=== PATIENT | male | born 1970 | race Caucasian/White ===

== ENCOUNTER 2023-10-22 05:37 | Emergency (ER) | payer OTHER, SELFPAY ==
[2023-10-22] VITALS (21 sets, daily range): BP systolic 155–182; BP diastolic 102–133; PULSE 57–84; RESP 16–20; TEMP 36.8; O2SAT 92–100; BMI 29.3
--- NOTE | 2023-10-22 05:49 | CRLHL7_ITS ---
For Patients: As a result of the Century Cures Act, medical imaging exams and procedure reports are released immediately into your electronic medical record. You may view this report before your referring provider. If you have questions, please contact your health care provider. INDICATION: Left-sided weakness. COMPARISON: None available. TECHNIQUE: CT of the head without intravenous contrast. Please note that all CT scans at this facility use dose modulation, iterative reconstruction, and/or weight-based dosing when appropriate to reduce radiation dose to as low as reasonably achievable. FINDINGS: The brain is normal in attenuation with preserved cortes-white matter differentiation. No hydrocephalus. No mass or mass effect. No intracranial hemorrhage. Intact skull base and cranial vault. Visualized orbits are without significant incidental findings. The left maxillary sinus is almost completely opacified. The visualized paranasal sinuses and mastoid air cells are otherwise clear. Incidental small (2 mm on series 7; image 16) dense foreign body within the right orbital medial canthal region. IMPRESSION: No acute infarct, intracranial mass, mass effect, hemorrhage or hydrocephalus. Left maxillary opacification. Incidental small (2 mm on series 7; image 16) dense foreign body within the right orbital medial canthal region. This finding may represent a contraindication to future MRI. Please note that all CT scans at this facility use dose modulation, iterative reconstruction, and/or weight-based dosing when appropriate to reduce radiation dose to as low as reasonably achievable. Dictated by Louie Ojeda MD @ 10/22/2023 6:13:10 AM (Electronically Signed)
[2023-10-22 05:57] LABS: Basophils Absolute Auto 0.04 K/uL (0.00-0.30); Basophils Percent Auto 0.6 % (0.0-3.0); Eosinophils Absolute Auto 0.28 K/uL (0.00-0.50); Eosinophils Percent Auto 4.4 % (0.0-7.0); Hematocrit 46.2 % (37.0-53.0); Hemoglobin* 15.5 gm/dL (13.5-17.5); Immature Granulocytes Abs Auto 0.02 K/uL (0.00-0.30); Immature Granulocytes Pct Auto 0.3 %; Lymphocytes Percent Auto 16.1 % (20-44); Mean Corpuscular HGB Conc 34 gm/dL (32-36); Mean Corpuscular Hemoglobin 30 pg (26-34); Mean Corpuscular Volume 90 fL (80-100); Monocytes Percent Auto 12.3 % (0.0-11.0); Neutrophils Absolute Auto 4.25 K/uL (1.7-7.0); Neutrophils Percent Auto 66.3 % (42.0-72.0); Platelet Count* 278 K/uL (140-440); RDW Coefficient of Variation % 12.4 % (11.5-15.5); Red Blood Count 5.14 m/uL (4.30-5.90); White Blood Count* 6.41 K/uL (4.50-11.00)
[2023-10-22 05:59] LABS: Slide Review Reflex No
[2023-10-22 06:09] LABS: Chloride* 107 mmol/L (96-114)
[2023-10-22 06:10] LABS: Potassium* 3.7 mmol/L (3.6-5.1); Sodium* 136 mmol/L (135-149)
[2023-10-22 06:11] LABS: INR 0.89 (0.91-1.10); Prothrombin Time 12.6 Seconds
[2023-10-22 06:12] LABS: Anion Gap 7 mEq/L (7-15); Carbon Dioxide* 22 mmol/L (20-32); Creatinine* 0.9 mg/dL (0.5-1.5); Est. Creatinine Clearance* 90.78; Estimated Glomerular Filt Rate 101 ml/min; Partial Thromboplastin Time* 33 Seconds (23-33)
--- NOTE | 2023-10-22 06:12 | ED_ITS ---
HPI - Neuro Symptoms/Deficit General Date Seen: 10/22/23 <Alfonso Carreon MD - Last Filed: 10/23/23 20:19> Chief Complaint: Neuro Symptoms/Altered Deficit <Alfonso Carreon MD - Last Filed: 10/23/23 20:19> Stated Complaint: LT sided facial arm numbness <Alfonso Carreon MD - Last Filed: 10/23/23 20:19> Time Seen by Provider: 10/22/23 05:54 <Alfonso Carreon MD - Last Filed: 10/23/23 20:19> Source: patient and family <Alfonso Carreon MD - Last Filed: 10/23/23 20:19> Mode of arrival: ambulatory <Alfonso Carreon MD - Last Filed: 10/23/23 20:19> Limitations: no limitations <Alfonso Carreon MD - Last Filed: 10/23/23 20:19> History of Present Illness HPI Narrative: Patient is a 53-year-old male who comes in with some numbness and tingling of the left side of his face as well as his left hand and foot that began yesterday at 4:00 p.m.. He continued to work and he thought his symptoms had improved somewhat by the time he went to bed. When he woke this morning he felt the numbness was worse, especially in his foot sway decided to come to the emergency department. He is on Praluent 150 mg every two weeks because he does not tolerate statins. He tells me that his blood pressure has always been normal although does quite high on admission. He takes a baby aspirin but admits that he misses days frequently. His maternal grandmother had a stroke. No other vascular disease in the family. He is not a smoker. His PCP is Dr. Carrasco. 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 No history of atrial fibrillation. He has never had an echo. <Alfonso Carreon MD - Last Filed: 10/23/23 20:19> Related Data Home Medications: Home Medications ?Medication ?Instructions ?Recorded ?Confirmed alirocumab 150 mg/mL subcutaneous 150 mg subcut Q14D 10/22/23 10/22/23 pen injector (Praluent Pen) Previous Rx's ?Medication ?Instructions ?Recorded aspirin 81 mg capsule 81 mg PO DAILY #21 caps 10/22/23 clopidogrel 75 mg tablet (Plavix) 75 mg PO DAILY #21 tabs 10/22/23 metoprolol succinate 50 mg 50 mg PO DAILY #30 tabs 10/22/23 tablet,extended release 24 hr (Toprol XL) <Alfonso Carreon MD - Last Filed: 10/23/23 20:19> Allergies/Adverse Reactions: Allergies Allergy/AdvReac Type Severity Reaction Status Date / Time No Known Drug Allergies Allergy Verified 10/22/23 05:52 <Alfonso Carreon MD - Last Filed: 10/23/23 20:19> Review of Systems Narrative: Review of systems is outlined above otherwise noted to be negative. He has had myalgias with multiple statins in the past. <Alfonso Carreon MD - Last Filed: 10/23/23 20:19> [facility] Medical History: Medical History (Updated 10/22/23 @ 06:59 by Alfonso Carreon MD) Hyperlipidemia ?E78.5 - Hyperlipidemia, unspecified (ICD-10) <Alfonso Carreon MD - Last Filed: 10/23/23 20:19> Social History: Social History Smoking Status: Never smoker Second hand tobacco smoke exposure: No How often do you have a drink containing alcohol: never AUDIT-C Alcohol total score: 0 Non-prescribed substance use: denies use <Alfonso Carreon MD - Last Filed: 10/23/23 20:19> Exam Narrative: Exam Narrative: Vitals noted. HEENT: Conjunctiva clear. Tympanic membranes are pearly white bilaterally. Posterior pharynx is clear without erythema or exudate. Neck is supple without adenopathy, thyromegaly, carotid bruit. Lungs: Clear to auscultation in all vásquez. No wheezes, rales, rhonchi. Heart: Regular rate and rhythm without murmur. Abdomen: Soft and nontender. No guarding, rigidity, rebound. Bowel sounds are normal. No palpable masses. Extremities: No cyanosis or edema. Good distal pulses. Skin: No abnormalities noted of the exposed skin. Neurologic: Awake, alert, fully oriented. His speech is clear. He is ambulatory. Extraocular movements are full. He has a very mild facial droop mainly involving the lower half of his left face. Tongue deviates slightly to the left. He does have diminished sensation of the cheek and chin that spares the forehead. 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 Fine finger movements are slowed on the left. His strength in the legs is normal. He describes some sensory loss in the left foot and ankle. There is no pronator drift. Reflexes are symmetric. NIHSS - 2 (1 for facial palsy and 1 for sensory deficit) <Alfonso Carreon MD - Last Filed: 10/23/23 20:19> Const: Vital Signs, click to edit/add: Vital Signs - 24 hr 10/22/23 05:43 10/22/23 05:44 10/22/23 05:50 Temperature 98.2 F Pulse Rate 63 64 Pulse Rate [Right Pulse Oximeter] 84 Respiratory Rate 20 Blood Pressure 182/114 H Blood Pressure [Ri ght Upper Arm] 182/114 H Pulse Oximetry 99 99 99 Oxygen Delivery Me od Room Air 10/22/23 05:57 10/22/23 05:59 10/22/23 06:00 Temperature Pulse Rate 62 59 L 60 Pulse Rate [Right Pulse Oximeter] Respiratory Rate Blood Pressure 157/102 H Blood Pressure [Ri ght Upper Arm] Pulse Oximetry 99 99 96 Oxygen Delivery Me thod 10/22/23 06:02 10/22/23 06:15 10/22/23 06:17 Temperature Pulse Rate 63 59 L 60 Pulse Rate [Right Pulse Oximeter] Respiratory Rate 16 Blood Pressure 162/110 H 155/110 H Blood Pressure [Ri ght Upper Arm] Pulse Oximetry 99 99 98 Oxygen Delivery Nh thod 10/22/23 06:18 10/22/23 06:30 10/22/23 06:31 Temperature Pulse Rate 61 63 57 L Pulse Rate [Right Pulse Oximeter] Respiratory Rate 16 Blood Pressure 165/112 H Blood Pressure [Ri ght Upper Arm] Pulse Oximetry 99 99 92 Oxygen Delivery Me thod 10/22/23 06:32 10/22/23 06:38 10/22/23 06:45 Temperature Pulse Rate 63 62 Pulse Rate [Right Pulse Oximeter] Respiratory Rate Blood Pressure Blood Pressure [Ri ght Upper Arm] Pulse Oximetry 95 98 99 Oxygen Delivery Me thod 10/22/23 06:48 Temperature Pulse Rate 61 Pulse Rate [Right Pulse Oximeter] Respiratory Rate 16 Blood Pressure 165/133 H Blood Pressure [Ri ght Upper Arm] Pulse Oximetry 99 Oxygen Delivery Me thod <Alfonso Carreon MD - Last Filed: 10/23/23 20:19> Vital Signs, click to edit/add: Vital Signs - 24 hr 10/22/23 05:43 10/22/23 05:44 10/22/23 05:50 Temperature 98.2 F Pulse Rate 63 64 Pulse Rate [Right Pulse Oximeter] 84 Respiratory Rate 20 Blood Pressure 182/114 H Blood Pressure [Ri ght Upper Arm] 182/114 H Pulse Oximetry 99 99 99 Oxygen Delivery Me thod Room Air 10/22/23 05:57 10/22/23 05:59 10/22/23 06:00 Temperature Pulse Rate 62 59 L 60 Pulse Rate [Right Pulse Oximeter] Respiratory Rate Blood Pressure 157/102 H Blood Pressure [Ri ght Upper Arm] Pulse Oximetry 99 99 96 Oxygen Delivery Me thod 10/22/23 06:02 10/22/23 06:15 10/22/23 06:17 Temperature Pulse Rate 63 59 L 60 Pulse Rate [Right Pulse Oximeter] Respiratory Rate 16 Blood Pressure 162/110 H 155/110 H Blood Pressure [Ri ght Upper Arm] Pulse Oximetry 99 99 98 Oxygen Delivery Me thod 10/22/23 06:18 10/22/23 06:30 10/22/23 06:31 Temperature Pulse Rate 61 63 57 L Pulse Rate [Right Pulse Oximeter] Respiratory Rate 16 Blood Pressure 165/112 H Blood Pressure [Ri ght Upper Arm] Pulse Oximetry 99 99 92 Oxygen Delivery Me thod 10/22/23 06:32 10/22/23 06:38 10/22/23 06:45 Temperature Pulse Rate 63 62 Pulse Rate [Right Pulse Oximeter] Respiratory Rate Blood Pressure Blood Pressure [Ri ght Upper Arm] Pulse Oximetry 95 98 99 Oxygen Delivery Me thod 10/22/23 06:48 Temperature Pulse Rate 61 Pulse Rate [Right Pulse Oximeter] Respiratory Rate 16 Blood Pressure 165/133 H Blood Pressure [Ri ght Upper Arm] Pulse Oximetry 99 Oxygen Delivery Me thod <Gulshan Carcamo DO - Last Filed: 10/22/23 07:43> Course Course ED Course: Patient seen and examined. His symptoms are 15 hours old so no code stroke was called. He was sent immediately for unenhanced a CT of the brain. This was normal other than a 2 mm density in the medial canthus of his right eye that likely is a metallic foreign body. The radiologist comments that this would preclude future MRIs. I spoke with the on-call stroke neurologist who has suggested CT angio of his head and neck, aspirin 81 mg daily, Plavix 75 mg daily for three weeks. He did suggest starting a low-dose blood pressure medication as well. <Alfosno Carreon MD - Last Filed: 10/23/23 20:19> Reevaluation(s) Reevaluation #1: CBC is normal. Basic metabolic panel is normal. PT and PTT are unremarkable. EKG shows sinus bradycardia with a rate of 58. No acute ST or T- wave changes. He is given aspirin 81 mg and Plavix 75 mg. <Alfonso Carreon MD - Last Filed: 10/23/23 20:19> Vital Signs Vital signs: Initial Vital Signs Pulse Rate 63 10/22/23 05:43 Blood Pressure 182/114 H 10/22/23 05:43 Blood Pressure Mean 136 H 10/22/23 05:43 Pulse Oximetry 99 10/22/23 05:43 Vital Signs Pulse Rate 63 10/22/23 05:43 Blood Pressure 182/114 H 10/22/23 05:43 Pulse Oximetry 99 10/22/23 05:43 Temperature 98.2 F 10/22/23 05:50 Pulse Rate 58 L 10/22/23 07:32 Respiratory Rate 16 10/22/23 06:48 Blood Pressure 159/109 H 10/22/23 07:32 Pulse Oximetry 100 10/22/23 07:32 Oxygen Delivery Method Room Air 10/22/23 05:50 <Alfonso Carreon MD - Last Filed: 10/23/23 20:19> Initial Vital Signs Pulse Rate 63 10/22/23 05:43 Blood Pressure 182/114 H 10/22/23 05:43 Blood Pressure Mean 136 H 10/22/23 05:43 Pulse Oximetry 99 10/22/23 05:43 Vital Signs Pulse Rate 63 10/22/23 05:43 Blood Pressure 182/114 H 10/22/23 05:43 Pulse Oximetry 99 10/22/23 05:43 Temperature 98.2 F 10/22/23 05:50 Pulse Rate 58 L 10/22/23 07:32 Respiratory Rate 16 10/22/23 06:48 Blood Pressure 159/109 H 10/22/23 07:32 Pulse Oximetry 100 10/22/23 07:32 Oxygen Delivery Method Room Air 10/22/23 05:50 <Gulshan Carcamo DO - Last Filed: 10/22/23 07:43> Medications Administered Medications: Discontinued Medications Generic Name Dose Route Start Last Admin Trade Name Freq PRN Reason Stop Dose Admin Aspirin 81 mg 10/22/23 06:41 10/22/23 06:45 Aspirin 81 Mg Tab.Chew PO 10/22/23 06:42 81 mg ONCE ONE Administration Clopidogrel Bisulfate 75 mg 10/22/23 06:40 10/22/23 06:45 Clopidogrel 75 Mg Tablet PO 10/22/23 06:41 75 mg ONCE ONE Administration <Alfonso Carreon MD - Last Filed: 10/23/23 20:19> Discontinued Medications Generic Name Dose Route Start Last Admin Trade Name Freq PRN Reason Stop Dose Admin Aspirin 81 mg 10/22/23 06:41 10/22/23 06:45 Aspirin 81 Mg Tab.Chew PO 10/22/23 06:42 81 mg ONCE ONE Administration Clopidogrel Bisulfate 75 mg 10/22/23 06:40 10/22/23 06:45 Clopidogrel 75 Mg Tablet PO 10/22/23 06:41 75 mg ONCE ONE Administration <Gulshan Carcamo DO - Last Filed: 10/22/23 07:43> MDM - Neuro Symptoms/Deficit MDM Narrative Medical decision making narrative: the patient was signed out to me pending CTA of head and neck. Was informed that if this is normal to use discharge with aspirin, Plavix for 3 weeks and 50 of Toprol for blood pressure control. CTA showed no acute concerning abnormalities and patient will be discharged with the previously mentioned medication. I explained them to follow up with primary care provider which is the they are agreeable to at this time. <Gulshan Carcamo DO - Last Filed: 10/22/23 07:43> Lab Data Labs: Lab Results 10/22/23 Range/Units 05:50 WBC 6.41 (4.50-11.00) K/uL RBC 5.14 (4.30-5.90) m/uL Hgb 15.5 (13.5-17.5) gm/dL Hct 46.2 (37.0-53.0) % MCV 90 (80-100) fL MCH 30 (26-34) pg MCHC 34 (32-36) gm/dL RDW Coeff of Gianfranco 12.4 (11.5-15.5) % Plt Count 278 (140-440) K/uL Neut % (Auto) 66.3 (42.0-72.0) % Lymph % (Auto) 16.1 L (20-44) % [place] % (Auto) 12.3 H (0.0-11.0) % Eos % (Auto) 4.4 (0.0-7.0) % Baso % (Auto) 0.6 (0.0-3.0) % Neut # (Auto) 4.25 (1.7-7.0) K/uL Lymph # (Auto) 1.00 (0.90-2.90) K/uL [place] # (Auto) 0.80 (0.00-0.90) K/UL Eos # (Auto) 0.28 (0.00-0.50) K/uL Baso # (Auto) 0.04 (0.00-0.30) K/uL Abs Immat Gran (auto) 0.02 (0.00-0.30) K/uL Imm/Tot Granulo (auto) 0.3 % INR 0.89 L (0.91-1.10) APTT 33 (23-33) Seconds Sodium 136 (135-149) mmol/L Potassium 3.7 (3.6-5.1) mmol/L Chloride 107 (96-114) mmol/L Carbon Dioxide 22 (20-32) mmol/L Anion Gap 7 (7-15) mEq/L BUN 24 (7-30) mg/dL Creatinine 0.9 (0.5-1.5) mg/dL Estimated Creat Clear 90.78 Estimated GFR 101 ml/min Glucose 110 (60-115) mg/dL Calcium 9.3 (8.4-10.6) mg/dL <Alfonso Carreon MD - Last Filed: 10/23/23 20:19> Lab Results 10/22/23 Range/Units 05:50 WBC 6.41 (4.50-11.00) K/uL RBC 5.14 (4.30-5.90) m/uL Hgb 15.5 (13.5-17.5) gm/dL Hct 46.2 (37.0-53.0) % MCV 90 (80-100) fL MCH 30 (26-34) pg MCHC 34 (32-36) gm/dL RDW Coeff of Gianfranco 12.4 (11.5-15.5) % Plt Count 278 (140-440) K/uL Neut % (Auto) 66.3 (42.0-72.0) % Lymph % (Auto) 16.1 L (20-44) % [place] % (Auto) 12.3 H (0.0-11.0) % Eos % (Auto) 4.4 (0.0-7.0) % Baso % (Auto) 0.6 (0.0-3.0) % Neut # (Auto) 4.25 (1.7-7.0) K/uL Lymph # (Auto) 1.00 (0.90-2.90) K/uL [place] # (Auto) 0.80 (0.00-0.90) K/UL Eos # (Auto) 0.28 (0.00-0.50) K/uL Baso # (Auto) 0.04 (0.00-0.30) K/uL Abs Immat Gran (auto) 0.02 (0.00-0.30) K/uL Imm/Tot Granulo (auto) 0.3 % INR 0.89 L (0.91-1.10) APTT 33 (23-33) Seconds Sodium 136 (135-149) mmol/L Potassium 3.7 (3.6-5.1) mmol/L Chloride 107 (96-114) mmol/L Carbon Dioxide 22 (20-32) mmol/L Anion Gap 7 (7-15) mEq/L BUN 24 (7-30) mg/dL Creatinine 0.9 (0.5-1.5) mg/dL Estimated Creat Clear 90.78 Estimated GFR 101 ml/min Glucose 110 (60-115) mg/dL Calcium 9.3 (8.4-10.6) mg/dL <Gulshan Carcamo DO - Last Filed: 10/22/23 07:43> Imaging Data CTA head and neck: Attestation: I have reviewed the pertinent imaging results. <Gulshan Carcamo DO - Last Filed: 10/22/23 07:43> Radiologist's impression: Preliminary Report: Comparison Same day head CT. Findings CTA Neck: No hemodynamically significant stenosis, occlusion or dissection. CTA Head: No hemodynamically significant large vessel stenosis or occlusion. No aneurysm. Diminutive left vertebral artery terminates at the PICA. Absent right A1 segment. Distal anterior cerebral artery opacifies via a patent anterior communicating artery. Full report to follow. Read by:?Melissa Street MD @10/22/2023 7:24:36 AM <Gulshan Carcamo DO - Last Filed: 10/22/23 07:43> CT scan - head: Attestation: I have reviewed the pertinent imaging results. <Gulshan Carcamo DO - Last Filed: 10/22/23 07:43> Radiologist's impression: No acute infarct, intracranial mass, mass effect, hemorrhage or hydrocephalus. Left maxillary opacification. Incidental small (2 mm on series 7; image 16) dense foreign body within the right orbital medial canthal region. This finding may represent a contraindication to future MRI. Please note that all CT scans at this facility use dose modulation, iterative reconstruction, and/or weight-based dosing when appropriate to reduce radiation dose to as low as reasonably achievable. Dictated by Louie Ojeda MD @ 10/22/2023 6:13:10 AM <Gulshan Carcamo DO - Last Filed: 10/22/23 07:43> Discharge Plan Discharge Clinical Impression: Cerebrovascular accident <Alfonso Carreon MD - Last Filed: 10/23/23 20:19> Patient Disposition: Home, Self-Care <Alfonso Carreon MD - Last Filed: 10/23/23 20:19> Condition: Stable <Alfonso Carreon MD - Last Filed: 10/23/23 20:19> Additional Instructions: Aspirin 81 mg daily, Plavix 75 mg daily for three weeks, Metoprolol-XL 50 mg daily. Start monitoring her blood pressure at home. Follow-up with Dr. Carrasco within the next five days. <Alfonso Carreon MD - Last Filed: 10/23/23 20:19> Prescriptions: New aspirin 81 mg capsule 81 mg PO DAILY Qty: 21 0RF clopidogrel [Plavix] 75 mg tablet 75 mg PO DAILY Qty: 21 0RF metoprolol succinate [Toprol XL] 50 mg tablet extended release 24 hr 50 mg PO DAILY Qty: 30 0RF No Action Praluent Pen 150 mg/mL pen injector 150 mg subcut Q14D <Alfonso Carreon MD - Last Filed: 10/23/23 20:19> Follow Up/Referrals: Provider,Not a Local [Staff Physician] - <Alfonso Carreon MD - Last Filed: 10/23/23 20:19> Stand Alone Forms: MyHealth Info Instructions <Alfonso Carreon MD - Last Filed: 10/23/23 20:19>
[2023-10-22 06:13] LABS: Blood Urea Nitrogen* 24 mg/dL (7-30); Calcium* 9.3 mg/dL (8.4-10.6); Glucose* 110 mg/dL (60-115)
--- NOTE | 2023-10-22 06:41 | CRLHL7_ITS ---
For Patients: As a result of the Century Cures Act, medical imaging exams and procedure reports are released immediately into your electronic medical record. You may view this report before your referring provider. If you have questions, please contact your health care provider. INDICATION: Acute stroke, left-sided weakness. TECHNIQUE: CTA neck with contrast bolus tracking, 3D angiographic rendering using maximum intensity projection (MIP) and images permanently archived. FINDINGS: There is minor carotid atherosclerosis. There is no significant carotid artery stenosis or dissection. There is no significant vertebral artery stenosis or dissection. The soft tissues of the neck are within normal limits. The cervical spine is in normal alignment. Degenerative changes are noted in the cervical spine. IMPRESSION: No significant carotid or vertebral artery stenosis or dissection. Please note that all CT scans at this facility use dose modulation, iterative reconstruction, and/or weight-based dosing when appropriate to reduce radiation dose to as low as reasonably achievable. Dictated by Eliazar Blackwell MD @ 10/22/2023 8:18:34 AM (Electronically Signed)
--- NOTE | 2023-10-22 06:41 | CRLHL7_ITS ---
For Patients: As a result of the Century Cures Act, medical imaging exams and procedure reports are released immediately into your electronic medical record. You may view this report before your referring provider. If you have questions, please contact your health care provider. INDICATION: Acute stroke, left-sided weakness. TECHNIQUE: CTA head with contrast bolus tracking, 3D angiographic rendering using maximum intensity projection (MIP) and images permanently archived. FINDINGS: There is normal opacification of the intracranial vasculature. There is no large vessel occlusion. No aneurysm is identified. Note is made of complete opacification of the left maxillary sinus. IMPRESSION: Unremarkable head CTA. Please note that all CT scans at this facility use dose modulation, iterative reconstruction, and/or weight-based dosing when appropriate to reduce radiation dose to as low as reasonably achievable. Dictated by Eliazar Blackwell MD @ 10/22/2023 8:17:47 AM (Electronically Signed)
[2023-10-22] MEDS: ASPIRIN 81 MG TAB.CHEW PO (06:45)
[2023-10-22] MEDS: CLOPIDOGREL 75 MG TABLET PO (06:45)
--- OUTSIDE RECORDS SUMMARY | 2023-10-22 06:53 | XMS_ITS | Clinical Summary ---
Author Organization [employer] [facility] Address [place], [place] [address] Care Team Providers Care Vp Revenue Cycle Name Role Phone Mariusz aCrrasco MD Primary Care Provider Allergies Active Allergy Reactions Criticality Noted Date Comments Atorvastatin Myalgia 09/09/2014 Hymenoptera Allergenic Extract *Unknown 08/12/2006 Rosuvastatin Myalgia 06/20/2010 Tolerated Crestor 10 mg M-W-, but not 10 mg daily Fluvastatin Myalgia 09/09/2014 Pravastatin 05/01/2010 Muscle pain Evolocumab Other - Describe In Comment Field 04/26/2016 myalgia Simvastatin Other - Describe In Comment Field 07/14/2009 Muscle pain Ezetimibe Myalgia 04/09/2016 Medications Medication Sig Dispensed Refills Start Date End Date Status aspirin enteric coated 81 mg tablet Take 1 tablet by mouth once daily with a meal. 0 1 Active EPINEPHrine (EPIPEN) 0.3 mg/0.3 mL (1:1,000) injection Inject 0.3 mg intramuscular one time if needed (as needed for anaphylaxis). 2 Each 1 4 Active dbvmzofb-ozr-GS-lycopen -lutein (CENTRUM SILVER MEN) 300-600-300 mcg tab Take by mouth. 0 8 Active Pitavastatin 1 mg tabIndications:Familial hypercholesteremia Start with 1 mg (1 tablet) 2 days/week (Mon/Fri). Increase to 1 mg once daily as tolerated and directed. 30 Tablet 5 3 Active alirocumab (Praluent Pen) 150 mg/mL pnijIndications:Hyperli pidemia, unspecified hyperlipidemia type Inject 150 mg subcutaneous every 2 weeks. 6 mL 3 4 Active Active Problems Problem Noted Date Diagnosed Date Familial Hypercholesteremia w baseline LDL 260 mg% + High Lpa - 76 11/02/2018 Obesity (BMI 30.0-34.9) 04/09/2016 Statin intolerance - unable to take simvastatin, atorvastatin, rosuvastatin, pravastatin, fluvastatin, pitavastatin. Also Repatha. 09/09/2014 Overview: -Intolerant of Zetia - muscle aches (was not on anything else at the time) -Consider re-trial of fluvastatin and pitavastatin, as was also taking zetia at the same time. 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 1 Cancer-colon Neg. 2 Cancer-prostate Neg. 3 Relation Name Status Comments Father Alive Maternal Grandmother Mother Alive Neg. 1 Neg. 2 Neg. 3 Social History Tobacco Use Types Packs/Day Years Used Date Smoking Tobacco: Never Smokeless Tobacco: Never Tobacco Cessation:Counseling Given: No Alcohol Use Standard Drinks/Week Comments No 0 (1 standard drink = 0.6 oz pur e alcohol) PHQ-2 Answer Date Recorded PHQ-2 TOTAL SCORE 0 05/08/2023 Social Connections Answer Date Recorded Frequency of Communication with Friends and Fami ly Not on file 03/15/2021 Financial Resource Strain Answer Date R ecorded Difficulty of Paying Living Expenses Not on file 03/15/2021 Difficulty of Paying Living Expenses Not on file 03/15/2021 Sex and Gender Information Value Date Recorded Sex Assigned at Not on file Gender Identity Not on file Sexual Orientation Not on file Obstetrics History Last Filed Vital Signs Vital Sign Reading Time Taken Comments Blood Pressure 128/78 05/08/2023 8:02 AM [employer] Pulse 86 05/08/2023 7:43 AM [employer] Temperature 37 ??C (98.6 ??F) 06/09/2019 7:48 AM CDT Respiratory Rate 16 09/09/2014 7:47 AM CDT Oxygen Saturation 97% 05/08/2023 7:43 AM [employer] Inhaled Oxygen Concentration - - Weight 93.4 kg (205 lb 12.8 oz) 05/08/2023 7:43 AM [employer] Height 170.2 cm (5' 7) 05/08/2023 7:43 AM [employer] Body Mass Index 32.23 05/08/2023 7:43 AM [employer] Plan of Treatment Health Maintenance Due Date Last Done Comments Colonoscopy through age 75 2014 Zoster (shingles) series for age 50+ (1 of 2) 07/10/2019 COVID-19 vaccine series (2022- season) 2022 09/07/2020, 08/17/2020 Influenza for age 50-64 11/23/2023 BMI (ht and wt on same day) for age 18+ 05/08/2024 05/08/2023, 06/09/2019, 03/05/2019, Additional history exists Depression screening for age 12+ 05/08/2024 05/08/2023, 03/09/2018, 04/26/2016, Additional history exists Tetanus booster 04/26/2026 04/26/2016, 04/16/2006 Lipids for age 45-75 04/29/2028 04/29/2023, 07/11/2022, 01/10/2022, Additional history exists Tdap Completed 04/26/2016 HIV for age 15-65 Completed 04/29/2023 Hepatitis C screening for age 18-79 Completed 04/29/2023 Pneumococcal series for age 6-64 Aged Out No longer eligible based on patient's age to complete this topic Procedures Procedure Name Priority Date/Time Associated Diagnosis Comments ANTI HIV 1/2 Add On 04/29/2023 9:14 AM [employer] Screening for HIV (human immunodeficiency virus) ANTI HCV Add On 04/29/2023 9:14 AM [employer] Need for hepatitis C screening test LIPID PANEL W REFLEX MEASURED LDL Routine 04/29/2023 9:14 AM [employer] Familial hypercholesterolemia from Last 3 Months or Most Recently Relevant to Health Maintenance Results * (ABNORMAL) LIPID PANEL W REFLEX MEASURED LDL (04/29/2023 9:14 AM [employer]) CHOLESTEROL,TOTAL 221(H) 100 - 199 mg/dL 04/29/2023 7:18 PM [employer] [facility] Comment: Cholesterol, Total Reference Ranges Desirable <200 mg/dL Borderline 200-239 mg/dL High >=240 mg/dL TRIGLYCERIDES 108 <150 mg/dL 04/29/2023 7:18 PM [employer] [facility] HDL CHOLESTEROL 44 >40 mg/dL 7:18 PM [employer] [facility] NON-HDL CHOLESTEROL 177(H) <145 mg/dl 04/29/2023 7:18 PM [employer] [facility] CHOL/HDL RATIO 5.02(H) <4.50 04/29/2023 7:18 PM [employer] [facility] LDL CHOLESTEROL 155(H) <=130 mg/dL 04/29/2023 7:18 PM [employer] [facility] VLDL CHOLESTEROL 22 <=30 mg/dL 04/29/2023 7:18 PM [employer] [facility] PROVIDER ORDERED STATUS RANDOM 04/29/2023 7:18 PM [employer] [facility] Blood BLOOD SPECIMEN / Unknown Venipuncture / Unknown 04/29/2023 9:14 AM [employer] 04/29/2023 9:14 AM [employer] Elizabeth MCDANIEL [facility] [address] [place] [address], * ANTI HCV (04/29/2023 9:14 AM [employer]) HEPATITIS C ANTIBODY Non-Reacti ve Non-React franky 04/30/2023 7:39 AM [employer] [facility] Comment:Please note, per www .CDC.gov: If a patient is known to be at high risk of HCV infection, or is symptomatic, and the physician's suspicion of HCV infection is high, HCV RNA testing is often employed and is of diagnostic value, even after an initial negative anti-HCV test result. Blood BLOOD SPECIMEN / Unknown Venipuncture / Unknown 04/29/2023 9:14 AM [employer] 04/29/2023 9:14 AM [employer] Mariusz Carrasco MD SEND OUTS Performing Organization Address City/Va Hospital/ZIP Co de Phone Number [facility] [address] [place] [address], * ANTI HIV 1/2 (04/29/2023 9:14 AM [employer]) HIV-1/HIV-2 SCREEN Non-Reacti ve Non-Reacti ve 04/30/2023 7:39 AM [employer] [facility] Comment:HIV-1 p24 and HIV-1/ HIV-2 Ab Not Detected. Blood BLOOD SPECIMEN / Unknown Venipuncture / Unknown 04/29/2023 9:14 AM [employer] 04/29/2023 9:14 AM [employer] Mariusz Carrasco MD SEND OUTS Performing Organization Address City/[facility] Hospital/[facility] Co de Phone Number [facility] [address] [place] [address], from Last 3 Months or Most Recently Relevant to Health Maintenance Care Teams Vp Revenue Cycle Relationship Specialty Start Date End Date Mariusz Carrasco MD [address] [place], [place] [phone] PCP - General 11/07/08
== END 2023-10-22 07:54 | disposition home or self-care (01) ==
PROVIDERS: Emergency Provider Family Medicine; PCP Family Medicine
DX: I63.9 Cerebral infarction, unspecified (principal)
CPT/HCPCS: 36415; 70450; 70496; 70498; 80048; 85025; 85610; 85730; 93005; 94761; 99283; 99284; 99285; A9270; Q9967